=== PATIENT | male | born 1955 | race Caucasian/White ===

== ENCOUNTER 2023-09-09 17:22 | Emergency (ER) | payer MEDICARE, BC ==
[2023-09-09] MEDS ORDERED: Sodium Chloride 0.9% 10 ML Syringe FLUSH PRN (17:33)
[2023-09-09 17:43] LABS: BASOPHILS PERCENT AUTO 0.4 % (0.2-1.2); EOSINOPHILS ABSOLUTE AUTO 0.1 x10^3/uL (0.0-0.5); EOSINOPHILS PERCENT AUTO 1.3 % (0.0-4.0); HEMATOCRIT 45.6 % (40.0-52.0); HEMOGLOBIN 15.7 g/dL (14.0-18.0); IMMATURE GRAN ABSOLUTE AUTO 0.03 x10^3/uL (0.00-0.07); LYMPHOCYTES ABSOLUTE AUTO 1.3 x10^3/uL (1.0-4.8); LYMPHOCYTES PERCENT AUTO 12.1 % (25.0-50.0); MEAN CORPUSCULAR HEMOGLOBIN 30.4 pg (26.0-32.0); MEAN CORPUSCULAR HGB CONC 34.4 g/dL (32.0-36.0); MEAN CORPUSCULAR VOLUME 88.2 fL (78.0-93.0); MONOCYTES ABSOLUTE AUTO 0.8 x10^3/uL (0.0-0.8); MONOCYTES PERCENT AUTO 6.9 % (2.0-11.0); NEUTROPHILS ABSOLUTE AUTO 8.7 x10^3/uL (1.8-7.7); PLATELET COUNT,PLT 211 x10^3/uL (130-400); RED BLOOD CELL COUNT 5.17 x10^6/uL (4.5-6.0)
[2023-09-09] MEDS: Lactated Ringers 1,000 ML IV ONE (17:43)
[2023-09-09] MEDS: Ketorolac 15 MG/ML SDV IVPUSH ONE (17:43)
[2023-09-09] MEDS: Ondansetron 4 MG/2 ML SDV IVPUSH ONE (17:45)
[2023-09-09] MEDS: HYDROmorphone 0.5 MG/0.5 ML Syringe IVPUSH ONE (17:46)
[2023-09-09 18:04] LABS: A/G RATIO 1.05; ALANINE AMINOTRANSFERASE,ALT 28 U/L (16-63); ALKALINE PHOSPHATASE 89 U/L (46-116); ANION GAP 17.9 mmol/L (5-15); ASPARTATE AMNIOTRANSFERASE,AST 21 U/L (15-37); BILIRUBIN TOTAL 0.6 mg/dL (0.2-1.0); BLOOD UREA NITROGEN,BUN 16 mg/dL (7-18); CALCIUM 9.5 mg/dL (8.5-10.1); CARBON DIOXIDE,CO2 25 mmol/L (21-32); CHLORIDE,CL 103 mmol/L (98-107); CREATININE 1.3 mg/dL (0.70-1.30); ESTIMATED GFR 60 mL/min (>=60); GLUCOSE RANDOM 132 mg/dL (70-99); POTASSIUM,K 3.9 mmol/L (3.5-5.1); PROTEIN TOTAL,TP 7.8 g/dL (6.4-8.2); SODIUM,NA 142 mmol/L (136-145)
[2023-09-09 18:42] LABS: APPEARANCE,URINE SLIGHTLY CLOUDY (CLEAR); BILIRUBIN,URINE SMALL (NEGATIVE); COLOR,URINE DARK YELLOW (YELLOW); GLUCOSE,URINE NEGATIVE (NEGATIVE); KETONES,URINE 15 mg/dL (NEGATIVE); LEUKOCYTE ESTERASE,URINE NEGATIVE (NEGATIVE); NITRITE,URINE NEGATIVE (NEGATIVE); OCCULT BLOOD,URINE MODERATE (NEGATIVE); PH,URINE 5.5 (5.0-8.0); PROTEIN,URINE 30 mg/dL (NEGATIVE)
[2023-09-09 18:47] LABS: BACTERIA,URINE RARE /HPF (NOT SEEN); MUCUS,URINE MODERATE /LPF (NOT SEEN); SQUAMOUS EPITHELIAL CELLS,UR NOT SEEN /HPF (NOT SEEN); WBC,URINE 0-5 /HPF (NOT SEEN)
[2023-09-09] MEDS: Iopamidol 612 MG/ML 100 ML Bottle IVPUSH ONE (18:52)
[2023-09-09] MEDS: Take Home: Acetaminophen/HYDROcodone 325-5 MG, 5 Tab Pack PO ONE (20:13)
[2023-09-11 02:24] VITALS: BP 135/75; PULSE 65
== END 2023-09-09 20:26 | disposition home or self-care (01) ==
LOC: VM.ED 17:22
DX: N13.2 Hydronephrosis with renal and ureteral calculous obstruction (principal); Z91.030 Bee allergy status
CPT/HCPCS: 74177; 80053; 81001; 85025; 96361; 96374; 96375; 99284; 99284-25; A9270-GY; J1170; J1885; J2405; J7120; Q9967